=== PATIENT | male | born 1975 | race Caucasian/White ===

== ENCOUNTER 2025-05-29 10:37 | Outpatient (AMB) | payer MEDICARE, MEDICAID, SELFPAY ==
--- NOTE | 2025-05-29 10:39 | MHC.OFFVIS ---
Intake Visit Reasons: 8M Sz Accompanied by: Parent Allergies No Known Allergies Allergy (Verified 05/29/25 10:45) Medication List - Last Reconciled 05/29/25 by Linnea Wells CNP amitriptyline 100 mg PO BEDTIME clonazepam 0.5 mg PO DAILY PRN levetiracetam 125 mg (1/2 x 250 mg) PO BID 30 days olanzapine mg PO olanzapine 2.5 mg PO QPM HPI Comments Details: No seizures. Behavior stable on olanzapine, but fluctuates. Some anxiety. Following with psychiatrist. Had dental implants without any problems. No incontinence or tongue biting. He has a history of mental retardation and severe microcephaly. Problems with constipation. He occasionally speaks single words. He will occasionally follow command. He is on medication for his behavior. Previous history of falls. Was not going to therapy for 2 yrs because of Covid. He had 2 brief seizures between the age of 3 year and 10 years and was treated with Dilantin and phenobarbital. He was then seizure free after that. He had a few seizures after 12 hours of general anesthesia for scoliosis surgery in 1991 and was then fine after that. Rarely once or twice a year he may have a 2 second episode in bed when he groans and then comes out of it. [facility] Medical History (Updated 05/29/25 @ 10:44 by Linnea Wells CNP) Intellectual disability Review of Systems Const Denies chills, Denies daytime sleepiness, Denies difficulty sleeping, Denies fatigue, Denies fever(s), Denies frequent falls, Denies headache(s), Denies increased appetite, Denies poor appetite, Denies snoring, Denies weakness, Denies weight gain and Denies weight loss Eyes Denies loss of vision ENT Denies vertigo, Denies dizziness, Denies headache(s) and Denies neck pain Card Denies chest pain at rest, Denies chest pain with activity, Denies syncope, Denies leg edema, Denies palpitations, Denies dyspnea and Denies dyspnea on exertion Resp Denies cough, Denies dyspnea, Denies dyspnea on exertion and Denies snoring GI Denies abdominal pain, Denies constipation, Denies heartburn, Denies diarrhea and Denies nausea Denies urinary frequency, Denies urinary incontinence and Denies urinary urgency Musc Denies abnormal gait, Denies back pain, Denies myalgias, Denies arthralgias, Denies neck pain, Denies numbness and Denies tingling Neuro Denies abnormal gait, Denies vertigo, Denies dizziness, Denies syncope, Denies frequent falls, Denies headache(s), Denies lack of coordination, Denies loss of vision, Denies memory loss, Denies numbness, Denies Other visual disturbances, Denies restless legs, Denies seizure-like activity, Denies tingling, Denies paresthesias, Denies tremor(s) and Denies weakness Psych Reports anxiety, Denies depression, Denies auditory hallucinations, Denies memory loss, Reports mood swings and Denies visual hallucinations Endo Denies fatigue and Denies palpitations Physical Exam Const Other: General Appearance:? normal, in no acute distress. Heart:? S1, S2 normal, no murmurs. Lungs:? clear anteriorly and posteriorly. Musculoskeletal:? normal. Extremities:? no edema. Psych:? intellectual disability. Neuro Other: Abnormal Neurological Findings: Microcephaly. Drooling constantly. Occasionally says single words, sometimes follows one-step commands. Limited examination.? Mental Status: Intellectual disability. Cranial Nerves: Pupils are equal, round, and reactive to light. External ocular muscles are intact. Visual kern are full, no ptosis. Face is symmetrical, no facial weakness or droop. Facial sensations are normal. Tongue protrudes in midline. Palate elevates symmetrically. Shoulder shrugging is normal Sensory Exam: Unable. Coordination: Unable. Gait Exam: Slightly unsteady on his feet with broad based gait. Cerebellar Signs: Unable. Extrapyramidal System: No tremor, rigidity with drooling. Speech: Occasionally says single words. Results Reviewed Results Reviewed: 03/2014 EEG WNL Assessment & Plan Assessment & Plan (1) Seizure disorder: Code(s): G40.909 - Epilepsy, unspecified, not intractable, without status epilepticus Category: Medical Plan: Continue levetiracetam 250mg 1/2 tablet twice a day. (2) Microcephaly: Code(s): Q02 - Microcephaly Category: Medical (3) Convulsion: Code(s): R56.9 - Unspecified convulsions Category: Medical Qualifiers: Convulsion type: unspecified Qualified Code(s): R56.9 - Unspecified convulsions Plan Previously treated with Dilantin, Phenobarb, and Tegretol with side effects. Medications: Changed From levetiracetam 125 mg (1/2 x 250 mg) PO BID 30 days 30 tabs 5RF To levetiracetam 125 mg (1/2 x 250 mg) PO BID 90 tabs 1RF 90 days Coding Level of Care Code Est Pt Level 4 (56548) Diagnoses Seizure disorder G40.909 Microcephaly Q02 Convulsions, unspecified convulsion type R56.9 Convulsion type: unspecified
--- OUTSIDE RECORDS SUMMARY | 2025-05-29 12:41 | XMS_ITS ---
Author Name [facility] Organization Unknown Encounters Encounter Type Encounter Reason Primary Diagnosis Location Date Ambulatory [facility] 06/12/2024 Care Team Organization Name Specialty Phone Email Start Date End Da te [facility] 2024
--- OUTSIDE RECORDS SUMMARY | 2025-05-29 12:41 | XMS_ITS | Patient Health Record ---
Author Organization [facility] [address] Address [address] [place] [address] Care Team Providers Care Roll Table Operator Name Role Phone JOS ASKEW Primary Care Provider [phone] Angela King Unavailable [phone] CLAUDETTEJUSTIN QUINTANA Unavailable [phone] NormChantel calabrese Unavailable [phone] Allergies No Known Allergies Results Component Value Reference Range Notes Patria Harper LP Default Reviewed date:02/14/2025 08:09:03 AM Interpretation: Performing Lab:[facility], [address] [facility], Phone - [phone], Director - Cony Notes/Report: Patria Harper LP Default 2002, we have completed your order by using the closest currently or formerly recognized AMA panel. We have assigned Lipid Panel, Test Code #[id number] to this request. If this is not the testing you wished to receive on this specimen, please contact the [facility] Client Inquiry/Technical Services Department to clarify the test order. We appreciate your business. A hand-written panel/profile was received from your office. In accordance with the [facility] Ambiguous Test Code Policy dated February. Metabolic Panel ([id number] Reviewed date:02/14/2025 08:42:26 AM Interpretation: Performing Lab:[facility], [address] [facility], [place], Phone - [phone], Director - Cony Notes/Report: Glucose 105 70-99 mg/dL BUN 24 6-24 mg/dL Creatinine 1.02 0.76-1.27 mg/dL eGFR 91 >59 mL/min/1.73 BUN/Creatinine Ratio 24 9-20 Sodium 143 134-144 mmol/L Potassium 4.2 3.5-5.2 mmol/L Chloride 107 96-106 mmol/L Carbon Dioxide, Total 23 20-29 mmol/L Calcium 9.0 8.7-10.2 mg/dL Protein, Total 6.8 6.0-8.5 g/dL Albumin 4.1 4.1-5.1 g/dL Globulin, Total 2.7 1.5-4.5 g/dL Bilirubin, Total 0.4 0.0-1.2 mg/dL Alkaline Phosphatase 82 44-121 IU/L AST (SGOT) 21 0-40 IU/L ALT (SGPT) 49 0-44 IU/L Lipid Panel-[id number] Reviewed date:02/14/2025 08:42:21 AM Interpretation: Performing Lab:[facility], [address] [place] [address], [place], Phone - [phone], Director - MDdry Notes/Report: Cholesterol, Total 115 100-199 mg/dL Triglycerides 138 0-149 mg/dL HDL Cholesterol 30 >39 mg/dL VLDL Cholesterol Rohan 24 5-40 mg/dL LDL Chol Calc (NIH) 61 0-99 mg/dL Ambmerrill Harper CMP14 Default A hand-written panel/profile was received from your office. In accordance with the [facility] Ambiguous Test Code Policy dated February 2003, we have completed your order by using the closest currently or formerly recognized AMA panel. We have assigned Comprehensive Metabolic Panel (14), Test Code #[id number] to this request. If this is not the testing you wished to receive on this specimen, please contact the [facility] Client Inquiry/Technical Services Department to clarify the test order. We appreciate your business. CBC With Differential/Platel et-[id number] Reviewed date:02/14/2025 08:45:30 AM Interpretation: Performing Lab:[facility], [address] [facility], [place], Phone - [phone], Director - MDJodry Notes/Report: WBC 4.5 3.4-10.8 x10E3/uL RBC 5.28 4.14-5.80 x10E6/uL Hemoglobin 16.0 13.0-17.7 g/dL Hematocrit 48.2 37.5-51.0 % MCV 91 79-97 fL MCH 30.3 26.6-33.0 pg MCHC 33.2 31.5-35.7 g/dL RDW 13.0 11.6-15.4 % Platelets 168 150-450 x10E3/uL Neutrophils 36 Not Estab. % Lymphs 46 Not Estab. % Monocytes 10 Not Estab. % Eos 7 Not Estab. % Basos 1 Not Estab. % Neutrophils (Absolute) 1.7 1.4-7.0 x10E3/uL Lymphs (Absolute) 2.0 0.7-3.1 x10E3/uL Monocytes(Absolute) 0.5 0.1-0.9 x10E3/uL Eos (Absolute) 0.3 0.0-0.4 x10E3/uL Baso (Absolute) 0.1 0.0-0.2 x10E3/uL Immature Granulocytes 0 Not Estab. % Immature Grans (Abs) 0.0 0.0-0.1 x10E3/uL [facility] Rapid Covid/Strep/Flu/RS V Reviewed date:12/12/2024 11:44:33 AM Interpretation:Negative Performing Lab: Notes/Report: Negative Reason For Referral No Information Medications Medication SIG (Take, Route, Frequency, Duration) Notes Start Date End Date Status Amitriptyline HCl 100 MG 1 tablet Orally Once a day; Duration: 30 day(s) Active levETIRAcetam 250 MG 1/2 tablet Orally T wice a day; Duration: 30 day(s) Active Mupirocin 2 % apply to affected ar ea Externally daily; Duration: 7 days 04/17/2025 Active Clotrimazole-Betamethasone 1-0.05 % APPLY EXTERNALLY TO AFFECTED AREA(S) TWO TIMES A DAY; Duration: 7 Active Triamcinolone Acetonide 0.1 % apply to affected area Externally once roldan; Duration: 14 days 04/17/2025 Active Senna 8.6 MG 2 tablets at bedtime as needed Orally Once a day Active OLANZapine 20 MG 5 Mg In the am 12 1/ 2 Mg at night Orally Once a day Active Immunizations Vaccine Route Administration Date Status Comme nts Flu vaccine no Preserv 3 and > IM Intramuscular 04/27/2018 Administered influenza IM Intramuscular 05/19/2020 Administered influenza IM Intramuscular 05/11/2021 Administered influenza IM Intramuscular 06/10/2022 Administered Influenza, seasonal, injectable, preservative free, 3 yrs and above IM Intramuscular 06/26/2019 Administered Influenza, seasonal, injectable, preservative free, 3 yrs and above Unknown 06/08/2024 Administered Pfizer Covid-19 Vaccine Unknown 09/22/2020 Administered Pfizer Covid-19 Vaccine Unknown 10/13/2020 Administered Pfizer Covid-19 Vaccine Unknown 07/19/2021 Administered Social History Tobacco Use: Social History Observation Description Date Details (start date - stop date) Former Smoker NA - NA Tobacco Use/Smoking Question Answer Notes Are you a former smoker Problems Problem Type SNOMED Code ICD Code Onset Dates Problem Status W/U Status Risk Notes Problem Epilepsy (03437609) Epilepsy, unspecified, not intractable, without status epilepticus (G40.909) Active confirmed Problem Microcephaly (4510456070) Microcephaly (Q02) Active confirmed Problem Unsteady gait (01949718) Unsteady gait (R26.81) Active confirmed Problem Seizure disorder (172914026) Seizure disorder (G40.909) Active confirmed Vital Signs Heart Rate 80 /min 02/26/2025 Temperature 98.2 degrees Fahrenheit 04/17/2025 HR: 78 Oximetry 97 % 02/26/2025 Blood pressure diastolic 84 mm Hg 05/07/2025 Height 59 in 05/07/2025 Blood pressure systolic 122 mm Hg 05/07/2025 Weight 152.7 lbs 05/07/2025 BMI 30.84 kg/m2 05/07/2025 Encounters Encounter Location Date Provider Diagnosis [facility] [address] [address] 09/20/2024 JOS ASKEW Microcephaly Q02 ; Epilepsy, unspecified, not intractable, without status epilepticus G40.909 and Hyperlipidemia, unspecified E78.5 [facility] [address] [address] 12/11/2024 Angela Svrcek Acute non-recurrent maxillary sinusitis J01.00 [facility] [address] 02/26/2025 JOS ASKEW Adult general medica l exam Z00.00 [facility] [address] [address] 04/17/2025 JUSTIN CLAUDETTE Skin rash R21 [facility] [address] [address] 05/07/2025 Chantel Normoyle Sneezing R06.7 ; Acu te COVID-19 U07.1 ; Nasal congestion R09.81 ; Encounter for examination of blood pressure without abnormal findings Z01.30 ; Microcephaly Q02 and Seizure disorder G40.909 [facility] [address] [address] 09/28/2024 TALAL ASKEW [facility] [address] [place] [address] 10/08/2024 TALAL ASKEW [facility] [address] [address] 10/09/2024 TALAL ASKEW [facility] [address] [address] 12/11/2024 TALAL ASKEW [facility] [address] [place] [address] 02/20/2025 TALAL ASKEW [facility] [address] [address] 04/11/2025 [address]ALAL ASKEW [facility] [address] [place] [address] 04/11/2025 TALAL ASKEW [facility] [address] [address] 04/16/2025 TALAL ASKEW [facility] [address] [address] 05/07/[address] [facility] [address] [place] [address] 05/09/2025 TALAL ASKEW Assessments Encounter Date Diagnosis (ICD Code) Assessment Notes Treatment Notes Treatment Clinical Notes Section Notes 09/20/2024 Microcephaly (ICD-10 - Q02) Patient with pas t medical history of microcephaly epilepsy hyperlipidemia well-known to me for several years. He has chronic back pain which is stable. He has scoliosis for which I do not recommend surgical treatment at this time. Patient continue to participate in assisted activities. He is under the supportive care of his parents he loves watching football and sports.. I did not appreciate any ulcers or any new abnormal physical findings. Patient will continue with activities at assisted and is low risk for TB and any immunizations that need to be updated need to be discussed per assisted protocol with the mother. I will attach an immunization history which should be also available at the state registry 12/11/2024 Acute non-recurrent maxillary sinusitis (ICD-10 - J01.00) #Acute sinusitis. Persistent nasal congestion, sinus congestion and fatigue x 10 days. Significant purulent drainage on exam. COVID, flu, RSV swab obtained we will follow-up pending results. Will treat with azithromycin. Advised nasal saline spray twice daily and continue Claritin daily as well as cool-mist humidifier at bedtime. Push fluids and rest. Follow-up if no improvement or with any new or worsening symptoms. Case discussed with collaborating physician Delvis Askwe who reviewed the assessment and plan. Chart, medications, labs, vital signs reviewed. Dictation was accomplished with the use of [employer] voice recognition software, prone to medical misidentifications and grammatical errors. This is unintentional and the practitioner does try to identify and correct these, but some could still be present. Please do not hesitate to contact practitioner for clarification. All questions answered to patients satisfaction. Patient verbalized understanding of diagnosis and treatments explained. To call sooner prior to next visit it any questions/concerns arise. 02/26/2025 Adult general medical exam (ICD-10 - Z00.00) Patient seen and examined. Comprehensive discussion was done on the following. 1. Nutrition: It is important to follow a healthy diet based on lots of vegetables and legumes and good fat. Avoid processed food and processed carbohydrates. Learn to prepare your own meals. Learn to read labels and avoid high fructose corn syrup, processed chemicals added to increase shelf life and preprepared meals. Avoid fast foods. Learn to eat slowly and plan meals for a week. Try to count calories and be mindful off daily calorie intake. Get into the habit of keeping an eye on your weight by using an appropriate scale. Learn to log exercise and discussed fitness Apps like [employer] which can help keep log off calories taken versus calories burned. Local food should be preferred. Discussed Dirty Dozen Versus Clean Fifteen. Discussed healthy supplements like fish oil, Tumeric, Curcumin, Melatonin, Resveratrol, Probiotics, Vitamin-D, Alpha-Lipoic acid, Vitamin-D and coconut oil. 2. It is important to exercise regularly. Is a good habit to walk at least 30-45 minutes a day. Gentle weightlifting with standard precautions to protect the back. Finding activity like cycling or hiking and get into the habit of engaging in it. Stretching before and after the exercises important. It is also important to contact me if there are any problems like shortness of breath, chest pain, back pain and joint or muscle pain associated with the exercise. 3. Discussed age appropriate screening guidelines. Colonoscopy needs to start at age 50 with stool for occult blood as appropriate. There is a new test that can test for genetic abnormalities in the stool sample. This would not replace a colonoscopy but could be used as a screening tool for patients who do not want a colonoscopy. We discussed the importance of early detection of colon cancer. 4. Discussed current PSA screening. PSA screening can be done in most patients between age 50 and 65. However early detection of prostate cancer needs to carefully be balanced with complications with treatment. These include incontinence, impotence etc. Each patient should decide if they would like to have this test. 5. Discussed safe driving and no use of smart phone while driving 6. Age-appropriate immunizations were discussed. A tetanus booster is needed every 10 years. Flu vaccine is recommended every year just before the start of the flu season. Shingles vaccine is recommended after age 50 but not all insurances cover it. Pneumonia vaccine is given after age 65 unless there are certain comorbidities for which it is started earlier. 7. Diagnostic labs were discussed. These could include CBC CMP and lipids with fasting blood glucose and insulin levels. Vitamin D and hemoglobin A1c testing might be appropriate. 04/17/2025 Skin rash (ICD-10 - R21) Garrett is a 49-year-old male with a PMH of microcephaly, seizure disorder who presents accompanied by his mom (who provides history) for evaluation of a nonhealing area on the right leg. Denies any environmental exposures or changes to detergent/soap. On presentation, patient is vitally stable. Exam reveals an area if excoriation on the right [place] with mild scabbing. No surrounding erythema or palpable warmth. Will provide Rx for triamcinolone cream to use 1-2x daily as needed for itching. Patient/parents understand not to use consistently for more than 12 days due to risk for skin thinning. Will also provide Rx for topical mupirocin should the area become red or develop purulent discharge. Return protocol reviewed. All questions answered to the patient's satisfaction. Patient demonstrates understanding of diagnosis and treatments discussed. Follow-up at next scheduled appointment, sooner should any questions/concerns arise. Case discussed with collaborating physician Elena Askew who has reviewed the assessment/plan. Chart, medications, labs, and vital signs reviewed. Dictation completed with the use of [employer] voice recognition software, prone to medical misidentifications and grammatical errors. All errors are unintentional. Although the practitioner does try to identify and correct errors, some may be present. Please do not hesitate to contact the practitioner for clarification. 05/07/2025 Sneezing (ICD-10 - R06.7) Garrett is a 49-year-old male with past medical history of microcephaly, seizure disorder, and anxiety who presents for urgent visit regarding positive COVID test. #COVID: Symptoms have been ongoing for 5 days. He is out of the window for Paxlovid. On physical exam, he appears comfortable with no productive cough, lungs are clear to auscultation, regular rate and rhythm on cardiac auscultation. Patient declines SpO2 however respirations appear easy and unlabored. Plan to hold off on Paxlovid given duration of symptoms, and patient appears well today. Discussed supportive care such as Tylenol as needed for mild pain or discomfort, Mucinex as needed, fluids throughout the day, and rest. Advised patient's mother to call the office if he develops a fever, worsening symptoms such as frequent productive cough, difficulty breathing, or ill-appearing. All questions have been answered to patient's satisfaction. Patient verbalized understanding of diagnosis and treatments explained. Advised to call sooner prior to next visit it any questions/concerns arise. Case discussed with collaborating physician Maryuri Askew who reviewed the assessment and plan. Chart, medications, labs, vital signs reviewed. Dictation was accomplished with the use of [employer] voice recognition software, which is prone to medical misidentifications and grammatical errors. This are unintentional and the practitioner does try to identify and correct these, but some could still be present. Please do not hesitate to contact practitioner for clarification. 05/07/2025 Acute COVID-19 (ICD-10 - U07.1) Garrett is a 49-year-old male with past medical history of microcephaly, seizure disorder, and anxiety who presents for urgent visit regarding positive COVID test. #COVID: Symptoms have been ongoing for 5 days. He is out of the window for Paxlovid. On physical exam, he appears comfortable with no productive cough, lungs are clear to auscultation, regular rate and rhythm on cardiac auscultation. Patient declines SpO2 however respirations appear easy and unlabored. Plan to hold off on Paxlovid given duration of symptoms, and patient appears well today. Discussed supportive care such as Tylenol as needed for mild pain or discomfort, Mucinex as needed, fluids throughout the day, and rest. Advised patient's mother to call the office if he develops a fever, worsening symptoms such as frequent productive cough, difficulty breathing, or ill-appearing. All questions have been answered to patient's satisfaction. Patient verbalized understanding of diagnosis and treatments explained. Advised to call sooner prior to next visit it any questions/concerns arise. Case discussed with collaborating physician Maryuri Askew who reviewed the assessment and plan. Chart, medications, labs, vital signs reviewed. Dictation was accomplished with the use of [employer] voice recognition software, which is prone to medical misidentifications and grammatical errors. This are unintentional and the practitioner does try to identify and correct these, but some could still be present. Please do not hesitate to contact practitioner for clarification. 09/20/2024 Epilepsy, unspecified, not intractable, without status epilepticus (ICD-10 - G40.909) Patient with pas t medical history of microcephaly epilepsy hyperlipidemia well-known to me for several years. He has chronic back pain which is stable. He has scoliosis for which I do not recommend surgical treatment at this time. Patient continue to participate in assisted activities. He is under the supportive care of his parents he loves watching football and sports.. I did not appreciate any ulcers or any new abnormal physical findings. Patient will continue with activities at assisted and is low risk for TB and any immunizations that need to be updated need to be discussed per assisted protocol with the mother. I will attach an immunization history which should be also available at the state registry 05/07/2025 Nasal congestion (ICD-10 - R09.81) Garrett is a 49-year-old male with past medical history of microcephaly, seizure disorder, and anxiety who presents for urgent visit regarding positive COVID test. #COVID: Symptoms have been ongoing for 5 days. He is out of the window for Paxlovid. On physical exam, he appears comfortable with no productive cough, lungs are clear to auscultation, regular rate and rhythm on cardiac auscultation. Patient declines SpO2 however respirations appear easy and unlabored. Plan to hold off on Paxlovid given duration of symptoms, and patient appears well today. Discussed supportive care such as Tylenol as needed for mild pain or discomfort, Mucinex as needed, fluids throughout the day, and rest. Advised patient's mother to call the office if he develops a fever, worsening symptoms such as frequent productive cough, difficulty breathing, or ill-appearing. All questions have been answered to patient's satisfaction. Patient verbalized understanding of diagnosis and treatments explained. Advised to call sooner prior to next visit it any questions/concerns arise. Case discussed with collaborating physician Maryuri Askew who reviewed the assessment and plan. Chart, medications, labs, vital signs reviewed. Dictation was accomplished with the use of [employer] voice recognition software, which is prone to medical misidentifications and grammatical errors. This are unintentional and the practitioner does try to identify and correct these, but some could still be present. Please do not hesitate to contact practitioner for clarification. 05/07/2025 Encounter for examination of blood pressure without abnormal findings (ICD-10 - Z01.30) Garrett is a 49-year-old male with past medical history of microcephaly, seizure disorder, and anxiety who presents for urgent visit regarding positive COVID test. #COVID: Symptoms have been ongoing for 5 days. He is out of the window for Paxlovid. On physical exam, he appears comfortable with no productive cough, lungs are clear to auscultation, regular rate and rhythm on cardiac auscultation. Patient declines SpO2 however respirations appear easy and unlabored. Plan to hold off on Paxlovid given duration of symptoms, and patient appears well today. Discussed supportive care such as Tylenol as needed for mild pain or discomfort, Mucinex as needed, fluids throughout the day, and rest. Advised patient's mother to call the office if he develops a fever, worsening symptoms such as frequent productive cough, difficulty breathing, or ill-appearing. All questions have been answered to patient's satisfaction. Patient verbalized understanding of diagnosis and treatments explained. Advised to call sooner prior to next visit it any questions/concerns arise. Case discussed with collaborating physician Maryuri Askew who reviewed the assessment and plan. Chart, medications, labs, vital signs reviewed. Dictation was accomplished with the use of [employer] voice recognition software, which is prone to medical misidentifications and grammatical errors. This are unintentional and the practitioner does try to identify and correct these, but some could still be present. Please do not hesitate to contact practitioner for clarification. 09/20/2024 Hyperlipidemia, unspecified (ICD-10 - E78.5) Patient with pas t medical history of microcephaly epilepsy hyperlipidemia well-known to me for several years. He has chronic back pain which is stable. He has scoliosis for which I do not recommend surgical treatment at this time. Patient continue to participate in assisted activities. He is under the supportive care of his parents he loves watching football and sports.. I did not appreciate any ulcers or any new abnormal physical findings. Patient will continue with activities at assisted and is low risk for TB and any immunizations that need to be updated need to be discussed per assisted protocol with the mother. I will attach an immunization history which should be also available at the state registry 05/07/2025 Microcephaly (ICD-10 - Q02) Garrett is a 49-year-old male with past medical history of microcephaly, seizure disorder, and anxiety who presents for urgent visit regarding positive COVID test. #COVID: Symptoms have been ongoing for 5 days. He is out of the window for Paxlovid. On physical exam, he appears comfortable with no productive cough, lungs are clear to auscultation, regular rate and rhythm on cardiac auscultation. Patient declines SpO2 however respirations appear easy and unlabored. Plan to hold off on Paxlovid given duration of symptoms, and patient appears well today. Discussed supportive care such as Tylenol as needed for mild pain or discomfort, Mucinex as needed, fluids throughout the day, and rest. Advised patient's mother to call the office if he develops a fever, worsening symptoms such as frequent productive cough, difficulty breathing, or ill-appearing. All questions have been answered to patient's satisfaction. Patient verbalized understanding of diagnosis and treatments explained. Advised to call sooner prior to next visit it any questions/concerns arise. Case discussed with collaborating physician Maryuri Askew who reviewed the assessment and plan. Chart, medications, labs, vital signs reviewed. Dictation was accomplished with the use of [employer] voice recognition software, which is prone to medical misidentifications and grammatical errors. This are unintentional and the practitioner does try to identify and correct these, but some could still be present. Please do not hesitate to contact practitioner for clarification. 05/07/2025 Seizure disorder (ICD-10 - G40.909) Garrett is a 49-year-old male with past medical history of microcephaly, seizure disorder, and anxiety who presents for urgent visit regarding positive COVID test. #COVID: Symptoms have been ongoing for 5 days. He is out of the window for Paxlovid. On physical exam, he appears comfortable with no productive cough, lungs are clear to auscultation, regular rate and rhythm on cardiac auscultation. Patient declines SpO2 however respirations appear easy and unlabored. Plan to hold off on Paxlovid given duration of symptoms, and patient appears well today. Discussed supportive care such as Tylenol as needed for mild pain or discomfort, Mucinex as needed, fluids throughout the day, and rest. Advised patient's mother to call the office if he develops a fever, worsening symptoms such as frequent productive cough, difficulty breathing, or ill-appearing. All questions have been answered to patient's satisfaction. Patient verbalized understanding of diagnosis and treatments explained. Advised to call sooner prior to next visit it any questions/concerns arise. Case discussed with collaborating physician Maryuri Askew who reviewed the assessment and plan. Chart, medications, labs, vital signs reviewed. Dictation was accomplished with the use of [employer] voice recognition software, which is prone to medical misidentifications and grammatical errors. This are unintentional and the practitioner does try to identify and correct these, but some could still be present. Please do not hesitate to contact practitioner for clarification. Plan Of Treatment Pending Test Test Name Order Date 25OH VITAMIN D 02/22/2023 CBC (COMPLETE BLOOD COUNT) 02/22/2023 CBC (COMPLETE BLOOD COUNT) 04/27/2018 CBC (COMPLETE BLOOD COUNT) 11/29/2018 CBC (COMPLETE BLOOD COUNT) 10/13/2020 CBC (COMPLETE BLOOD COUNT) 10/19/2022 COMPREHENSIVE METABOLIC PANEL 10/19/2022 COMPREHENSIVE METABOLIC PANEL 11/29/2018 COMPREHENSIVE METABOLIC PANEL 10/13/2020 COMPREHENSIVE METABOLIC PANEL 04/27/2018 COMPREHENSIVE METABOLIC PANEL 02/22/2023 HEMOGLOBIN A1C 02/22/2023 LIPID PANEL 02/22/2023 LIPID PANEL 04/27/2018 LIPID PANEL 10/13/2020 LIPID PANEL 11/29/2018 LIPID PANEL 10/19/2022 TSH 02/22/2023 XR L-Spine 2-3 Views 06/09/2022 LIPID PANEL, STANDARD 09/10/2021 LIPID PANEL, STANDARD 09/20/2024 LIPID PANEL, STANDARD 12/13/2023 COMPREHENSIVE METABOLIC PANEL 09/20/2024 COMPREHENSIVE METABOLIC PANEL 12/13/2023 COMPREHENSIVE METABOLIC PANEL 09/10/2021 CBC (INCLUDES DIFF/PLT) 09/10/2021 CBC (INCLUDES DIFF/PLT) 12/13/2023 CBC (INCLUDES DIFF/PLT) 09/20/2024 URINALYSIS, COMPLETE 12/13/2023 URINALYSIS, COMPLETE 09/10/2021 HEMOGLOBIN A1c 09/10/2021 HEMOGLOBIN A1c 12/13/2023 TSH 12/13/2023 VITAMIN D,25-OH,TOTAL,IA 12/13/2023 COMPLETE URINALYSIS 02/22/2023 COMPLETE URINALYSIS 10/19/2022 PPC Rapid Covid/Strep/Flu/RSV 05/07/2025 Next Appt Details Provider Name:JOS ASKEW, 06/18/2025 09:30:00 AM, [address] [address], [place], [address], Insurance Providers Payer Name Payer Address Payer Phone Subscriber Number Group Number Insured Name Patient Relationship to Insured Coverage Start Date Coverage End Date Medicare Part B [id number] [address] [place] [id number] Garrett Mendoza Self - patient is the insured 8 [employer] [place] [address] [place] [address] [id number] Garrett Mendoza Self - patient is the insured [employer] [address] [address] [place] [phone] [id number] Garrett Mendoza Self - patient is the insured 4 Medical (General) History Medical History History ICD Code depression anxiety microcephaly seizure disorder Surgical History Surgery Date(Month/Year) spine repair tonsillectomy
== END 2025-05-29 10:52 | disposition home or self-care (01) ==
LOC: HO.HSM 10:37
PROVIDERS: PCP Internal Medicine; Referring Provider Internal Medicine; Visit Provider Registered Nurse
DX: G40.909 Epilepsy, unspecified, not intractable, without status epilepticus (principal); Q02 Microcephaly; R56.9 Unspecified convulsions
CPT/HCPCS: 99214

== ENCOUNTER → 2025-05-29 10:37 | Outpatient (BNVA) | payer MEDICARE, MEDICAID, SELFPAY | PROVIDERS: PCP Internal Medicine; Referring Provider Internal Medicine; Visit Provider Registered Nurse | DX: Q02 Microcephaly (principal); G40.909 Epilepsy, unspecified, not intractable, without status epilepticus; Z79.899 Other long term (current) drug therapy | CPT/HCPCS: 99212 ==